=== PATIENT | female | born 1980 | race African-American/Black ===

== ENCOUNTER 2017-05-05 20:47 | Inpatient (IN) ==
[2017-05-05] MEDS ORDERED: CITRIC ACID/SODIUM CITRATE 30 ML UDCUP ONE (21:11)
[2017-05-05] MEDS ORDERED: ceFAZolin 2,000 MG in PREMIX 1 EACH IV ONE (21:14)
[2017-05-05] MEDS ORDERED: CITRIC ACID/SODIUM CITRATE 30 ML UDCUP PO ONE (21:14)
[2017-05-05] MEDS ORDERED: FAMOTIDINE 20 MG/2 ML VIAL IV ONE (21:14)
[2017-05-05] MEDS ORDERED: OXYTOCIN 10 UNIT/ML VIAL ONE (21:18)
[2017-05-05] MEDS ORDERED: OXYTOCIN/LR 30 UNIT/1,000 ML BAG IV ONE (21:18)
[2017-05-05] MEDS: LACTATED RINGERS 1,000 ML IV SCH ×2 (21:24→23:22)
[2017-05-05] MEDS ORDERED: OXYTOCIN/LR 20 UNIT/1,000 ML BAG IV ONE ×2 (21:32→22:38)
[2017-05-05] MEDS ORDERED: FUROSEMIDE 20 MG/2 ML VIAL ONE (21:35)
[2017-05-05] MEDS ORDERED: PHENYLEPHRINE 1 MG/10 ML SYRINGE IV ONE (21:35)
[2017-05-05] MEDS ORDERED: DEXAMETHASONE 4 MG/1 ML VIAL ONE (21:35)
[2017-05-05] MEDS ORDERED: ONDANSETRON 4 MG/2 ML VIAL ONE (21:35)
[2017-05-05 21:38] LABS: Basophils % 0.1 % (0.0-0.8); Eosinophils # 0.1 10*3/uL (0.0-0.87); Eosinophils % 0.3 % (0.00-10.9); Hematocrit 31.8 VOL% (35.7-47.0); Hemoglobin 10.3 GM/DL (12.0-16.0); Immature Granulocytes % 1.8 %; Immature Granulocytes Absolute 0.27 #; Lymphocytes # 2.8 10*3/uL (1.4-4.0); Lymphocytes % 19.1 % (21.3-54.2); Mean Corpuscular HGB Conc 32.4 GM/DL (32-36); Mean Corpuscular Hemoglobin 29 PG (27-34); Mean Corpuscular Volume 89.3 FL (87-102); Mean Platelet Volume 10.7 FL (9.6-12.0); Monocytes % 6.8 % (1.7-12.7); NRBC # 0.03 10*3/uL; Neutrophils # 10.5 10*3/uL (1.4-7.4); Neutrophils % 71.9 % (38.7-73.9); Platelet Count 295 T/CUMM (130-400); Red Blood Count 3.56 MC/CUMM (3.8-5.5); Red Cell Distribution Width 16.2 % (9.3-17.3); White Blood Count 14.6 T/CUMM (4-12)
[2017-05-05 22:08] LABS: Albumin 2.4 G/DL (3.4-5.0); Bilirubin,Total 0.5 MG/DL (0.2-1.0); Calcium 8.6 MG/DL (8.5-10.1); Osmolality,Calculated 270.7 MOS/KG (273-304); Potassium 4.4 MMOL/L (3.5-5.1); Total Protein 6.4 G/DL (6.4-8.3)
[2017-05-05 22:14] LABS: INR 0.9; Partial Thromboplastin Time 27.2 SECS (0-40)
[2017-05-05] MEDS ORDERED: MORPHINE 10 MG/10 ML VIAL ONE (22:35)
[2017-05-05] MEDS ORDERED: RHO(D) IMMUNE GLOBULIN 300 MCG SYRINGE IM ONE (22:38)
[2017-05-05] MEDS ORDERED: ONDANSETRON 4 MG/2 ML VIAL IV PRN (22:38)
[2017-05-05] MEDS ORDERED: ACETAMINOPHEN 325 MG TABLET PO PRN (22:38)
[2017-05-05 22:57] LABS: Cord Arterial Blood HCO3 18.6 MMOL/L
[2017-05-05] MEDS ORDERED: LACTATED RINGERS 1,000 ML IV SCH (23:00)
[2017-05-05 23:02] LABS: Cord Venous Blood HCO3 21.1 MMOL/L; Cord Venous Blood PCO2 42.4 MMHG; Cord Venous Blood PO2 42.1
[2017-05-06] MEDS: IBUPROFEN 800 MG TABLET PO PRN ×2 (00:27→21:39)
[2017-05-06 06:25] LABS: Basophils % 0.1 % (0.0-0.8); Hematocrit 31.2 VOL% (35.7-47.0); Hemoglobin 10.2 GM/DL (12.0-16.0); Immature Granulocytes Absolute 0.21 #; Lymphocytes # 1.7 10*3/uL (1.4-4.0); Lymphocytes % 8.4 % (21.3-54.2); Mean Corpuscular HGB Conc 32.7 GM/DL (32-36); Mean Corpuscular Hemoglobin 29 PG (27-34); Mean Corpuscular Volume 87.9 FL (87-102); Mean Platelet Volume 10.4 FL (9.6-12.0); Monocytes # 0.9 10*3/uL (0.11-0.8); Monocytes % 4.5 % (1.7-12.7); Neutrophils # 17.4 10*3/uL (1.4-7.4); Platelet Count 245 T/CUMM (130-400); Red Blood Count 3.55 MC/CUMM (3.8-5.5); White Blood Count 20.2 T/CUMM (4-12)
[2017-05-06 06:53] LABS: Apearance,Urine Slightly Hazy (Clear); Bilirubin,Urine Negative (Negative); Blood, Urine Negative (Negative); Glucose,Urine (UA) Negative (Negative); Ketones,Urine Negative (Negative); Mucus,Urine Occasional /LPF (Occasional); Nitrite,Urine Negative (Negative); Protein,Urine Negative; RBC,Urine <1 /HPF (0-4); Squamous Epithelial Cell,Urine Occasional /HPF (0-10); Urine Color Yellow (Yellow); Urine Specific Gravity 1.009 (1.001-1.035); Urine Urobilinogen < 2.0 EU/DL (0.2-1.0); WBC,Urine 1 /HPF (0-6)
[2017-05-06 06:57] LABS: Hypochromasia 1+; Ovalocytes Slight; Platelet Estimate Adequate
[2017-05-06] MEDS: levETIRAcetam 500 MG TABLET PO SCH ×2 (08:43→21:28)
[2017-05-06] MEDS: MULTIVITAMIN (PRENATAL) TABLET PO SCH (08:59)
[2017-05-06] MEDS: DOCUSATE SODIUM 100 MG CAPSULE PO SCH ×2 (08:59→21:28)
[2017-05-06] MEDS ORDERED: ZONISAMIDE 100 MG CAPSULE PO SCH ×2 (09:00→19:00)
[2017-05-06] MEDS ORDERED: ZONISAMIDE 100 MG CAPSULE PO ONE ×2 (19:00→21:00)
[2017-05-07] MEDS: levETIRAcetam 500 MG TABLET PO SCH ×2 (09:11→20:42)
[2017-05-07] MEDS: MULTIVITAMIN (PRENATAL) TABLET PO SCH (09:11)
[2017-05-07] MEDS: MAGNESIUM HYDROXIDE SUSP 30 ML UDCUP PO PRN (09:11)
[2017-05-07] MEDS: DOCUSATE SODIUM 100 MG CAPSULE PO SCH ×2 (09:11→20:43)
[2017-05-07] MEDS: SIMETHICONE CHEW 80 MG TABLET PO PRN ×2 (11:53→17:59)
[2017-05-07] MEDS ORDERED: ZONISAMIDE 100 MG CAPSULE PO SCH (21:00)
[2017-05-08] MEDS: DOCUSATE SODIUM 100 MG CAPSULE PO SCH (08:59)
[2017-05-08] MEDS: levETIRAcetam 500 MG TABLET PO SCH (09:04)
[2017-05-08] MEDS: MAGNESIUM HYDROXIDE SUSP 30 ML UDCUP PO PRN (09:08)
[2017-05-08] MEDS: SIMETHICONE CHEW 80 MG TABLET PO PRN (09:08)
[2017-05-08] MEDS ORDERED: INFLUENZA VIRUS VACCINE 0.5 ML SYRINGE IM ONE (10:40)
[2017-05-08] MEDS: MULTIVITAMIN (PRENATAL) TABLET PO SCH (11:01)
[2017-05-08 14:54] VITALS: BP 120/54
== END 2017-05-08 14:15 | disposition home or self-care (01) | DRG 540 ==
LOC: N.LDOUT 20:47 → N.LD 20:48 → N.OB 05-06 13:41
PROVIDERS: ADMIT Obstetrics & Gynecology; ATTEND Obstetrics & Gynecology
PROC: LDCSECT (ICD-10-PCS; 2017-05-05 21:15)